=== PATIENT | male | born 1985 | race Caucasian/White ===

== ENCOUNTER 2017-10-03 19:22 | Emergency (ER) | payer SELFPAY ==
[~2017-10-03] VITALS: Ht 167.6 cm; Wt 79.0 kg
[~2017-10-03 19:22] MED LIST: PHEN100C4
[2017-10-03] MEDS ORDERED: SODIUM CHLORIDE 0.9% 1,000 ML IV ONE (19:35)
[2017-10-03 20:02] LABS: CHLORIDE 103 mEq/L (98-107)
[2017-10-03 20:03] LABS: BASOPHILS % 0.4 % (0.0-2.0); EOSINOPHILS % 1.9 % (0.0-5.0); HEMATOCRIT. 48.7 % (42.0-52.0); HEMOGLOBIN. 16.2 g/dL (14.0-18.0); LYMPHOCYTES % 41.9 % (20.0-50.0); MEAN CORPUSCULAR HEMOGLOBIN 29.3 pg (28.0-32.0); MEAN CORPUSCULAR VOLUME 87.8 fL (80.0-94.0); MEAN PLATELET VOLUME 7.5 fl (7.4-10.4); MONOCYTES % 7.2 % (2.0-8.0); NEUTROPHILS % 48.6 % (40.0-76.0); PLATELET 369 x1000/uL (130-400); RED BLOOD CELL COUNT 5.55 mill/uL (4.7-6.1)
[2017-10-03 20:07] LABS: CARBON DIOXIDE 12 mEq/L (21-32); ETHANOL BLOOD < 10 mg/dL
[2017-10-03 20:10] LABS: CREATINE KINASE 205 IU/L (39-308)
[2017-10-03 20:15] LABS: AMMONIA 190 uMol/L (<32)
[2017-10-03 20:22] LABS: *AMPHETAMINES SCREEN URINE NEGATIVE (NEGATIVE); *BARBITURATES SCREEN URINE NEGATIVE (NEGATIVE); *BENZODIAZEPINES SCREEN URINE NEGATIVE (NEGATIVE); *COCAINE SCREEN URINE NEGATIVE (NEGATIVE); CANNABINOID URINE SCREEN NEGATIVE (NEGATIVE); METHADONE URINE SCREEN NEGATIVE (NEGATIVE); OPIATES URINE SCREEN NEGATIVE (NEGATIVE); PHENCYCLIDINE URINE SCREEN NEGATIVE (NEGATIVE)
[2017-10-03] MEDS ORDERED: SODIUM CHLORIDE 0.9% 1,000 ML IV NR (22:06)
[2017-10-03] MEDS ORDERED: LACTULOSE 20G/30ML UDC PO NR ×2 (22:15→23:15)
[2017-10-03] MEDS ORDERED: PHENYTOIN SODIUM 1,000 MG in SODIUM CHLORIDE 0.9% 100 ML IV NR (22:15)
[2017-10-03] MEDS ORDERED: PHENYTOIN 100 MG/4 ML UDC PO NR (22:45)
[2017-10-03 23:30] VITALS: BP 139/82
== END 2017-10-03 23:33 | disposition home or self-care (01) ==
LOC: ER 19:28
DX: R56.9 Unspecified convulsions (principal); E72.20 Disorder of urea cycle metabolism, unspecified; R51 Headache; Z91.14 Patient's other noncompliance with medication regimen
CPT/HCPCS: 36415; 70450; 71010; 80053; 80185; 80305; 82140; 82550; 85025; 93005; 96360; 96361; 99285; G0482; J7030; Z7610; J1165; J7050